=== PATIENT | female | born 1955 ===

== ENCOUNTER 2021-06-21 08:25 | Outpatient (CLI) | payer OTHER | END 2021-06-21 08:42 | disposition home or self-care (01) | LOC: RX STUDY 08:25 | DX: K21.9 Gastro-esophageal reflux disease without esophagitis (principal); R13.19 Other dysphagia; E03.8 Other specified hypothyroidism ==

== ENCOUNTER → 2021-12-22 | Outpatient (CLI) | payer OTHER | END | disposition home or self-care (01) | LOC: NUCLEAR 13:00 | PROVIDERS: ATTEND Psychiatry & Neurology Neurology | DX: G30.8 Other Alzheimer's disease (principal) | CPT/HCPCS: 78803; A9557 ==